=== PATIENT | female | born 1945 | race Caucasian/White ===

== ENCOUNTER → 2016-11-13 | Outpatient (CLI) | payer MEDICARE, BC ==
[~2016-11-13] MED LIST: DESYREL50 MG PO; PANTOPRAZOLE SO40 MG PO; SIMVASTATIN20 MG PO; TOPROL XL PO; TRIAMTERENE-HCT1 TA6 PO; TRIAMTERENE-HCT1 TA8 PO
== END | disposition home or self-care (01) ==
LOC: CSSDAY 10:00
DX: M81.0 Age-related osteoporosis without current pathological fracture (principal)
CPT/HCPCS: 36415; 82310; 96372; J0897

== ENCOUNTER → 2017-01-07 | Outpatient (CLI) | payer MEDICARE, BC ==
--- NOTE | ~2017-01-07 | MY29 ---
[facility] A Service [facility] RADIOLOGY TEXT RESULTS PATIENT: SANDRA WOOTEN LOCATION: [facility] : 45 UNIT #: [id number] AGE: [address]: Mono Ruiz MD SEX: F ORDER DR: [id number] [address] [address] [id number] O MR#: [id number] Acc #: [id number] NAME: SANDRA WOOTEN. : 1945 SEX: F STUDY DATE/TIME: 01/07/2017 13:33 UNIT: [facility] ROOM: STUDY DESCRIPTION: MY [facility] SCREENING W/ CAD BILAT Attending Physician: Mono Ruiz M.D. Ordering Physician: Mono Ruiz M.D. Primary Care Physician: Mono Ruiz M.D. MEDICAL IMAGING REPORT This report is preliminary unless electronic signature is present EXAM Digital screening mammogram with CAD. INDICATIONS Routine screening. PROCEDURE Bilateral CC and MLO views obtained on a digital mammography unit. FDA-approved CAD device utilized. COMPARISON 09/29/2014 FINDINGS Scattered fibroglandular density. There is no dominant mass or suspicious microcalcification. Small benign-appearing masses in both breasts are unchanged. Slightly larger, focal asymmetry in the left breast at the 9 o'clock position is unchanged. IMPRESSION Benign screening mammogram. Screening interval in 1 year suggested. Patients over the age of 40 are entered into a reminder system with target due date for the next mammogram. A result letter will also be sent to the patient. BIRADS: 2 Benign findings. Dictated by... Salty Alexander M.D. THIS IS AN ELECTRONICALLY VERIFIED REPORT [facility] A Service [facility] RADIOLOGY TEXT RESULTS PATIENT: SANDRA WOOTEN LOCATION: [facility] : 45 UNIT #: [id number] AGE: [address]: Mono Ruiz MD SEX: F ORDER DR: Salty Alexander M.D. at 01/08/2017 7:14 AM Pamela TD: 01/07/2017 20:23 JOB #: [id number] MEDICAL IMAGING REPORT Page 1 of 1 COPY
--- NOTE | ~2017-01-07 | BD1 ---
[facility] A Service of [facility] RADIOLOGY TEXT RESULTS PATIENT: SANDRA WOOTEN LOCATION: [facility] : 45 UNIT #: [id number] AGE: [address]: Mono Ruiz MD SEX: F ORDER DR: [id number] [facility] [address]. [place], [place] [address] [id number] O MR#: [id number] Acc #: [id number] NAME: SANDRA WOOTEN : 1945 SEX: F STUDY DATE/TIME: 01/07/2017 13:52 UNIT: [facility] ROOM: STUDY DESCRIPTION: BD Dexa Bone Dens 1+ Site Attending Physician: Mono Ruiz M.D. Ordering Physician: Mono Ruiz M.D. Primary Care Physician: Mono Ruiz M.D. MEDICAL IMAGING REPORT This report is preliminary unless electronic signature is present EXAM DXA scan HISTORY Post menopausal osteoporosis. TECHNIQUE Bone mineral density was measured over the lumbar spine and left hip. FINDINGS In the lumbar spine, Total bone mineral density is 0.907 g/cm2 with a T-score of -1.3. At the left hip, bone mineral density measures 0.805 g/cm2 with a T-score of -1.1. The T-score in the femoral neck is -1.6. IMPRESSION Osteopenic changes noted in the left femoral neck. Lumbar spine bone mineral density is within normal limits. Dictated by... Jose Flores M.D. THIS IS AN ELECTRONICALLY VERIFIED REPORT Jose Flores M.D. at 01/08/2017 4:41 PM ASHLEY/joelle TD: 01/08/2017 11:21 JOB #: [id number] MEDICAL IMAGING REPORT Page 1 of 1 COPY
== END | disposition home or self-care (01) ==
LOC: CWCC 13:00
DX: Z12.31 Encounter for screening mammogram for malignant neoplasm of breast (principal); M81.0 Age-related osteoporosis without current pathological fracture; M85.88 Other specified disorders of bone density and structure, other site
CPT/HCPCS: 77080; G0202